=== PATIENT | female | born 1950 | race Caucasian/White ===

== ENCOUNTER → 2020-12-17 10:07 | Outpatient (CLI) | payer MEDICARE, OTHER, SELFPAY ==
--- NOTE | ~2020-12-17 | US_ITS ---
EXAMINATION: US soft tissue UE RT EXAM DATE: 12/17/2020 10:45 INDICATION: R22.9 - Localized swelling, mass and lump, unspecified, reportedly mass for one week. No known injury. TECHNIQUE: Multiple grayscale and Doppler images of the right upper arm region were obtained (by a te chnologist who performed the scan) and subsequently reviewed. There is no prior study for comparison . FINDINGS: Scanning in the area of clinical concern demonstrates a focal region isoechoic to surrounding fat, me asuring about 10 cm diameter by 2.4 cm in thickness. This is most consistent with an encapsulated lip bandar, but obviously would have had to be present for much longer than one week. Please clinically belinda elate. Musculature deep to this is unremarkable. 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 Reviewed, dictated and finalized at location B.
== END ==
PROVIDERS: PCP Family Medicine; Visit Provider Nurse Practitioner Family
DX: R22.9 Localized swelling, mass and lump, unspecified (principal); M79.89 Other specified soft tissue disorders
CPT/HCPCS: 76882

== ENCOUNTER 2021-03-29 09:16 | Outpatient (CLI) | payer MEDICARE, OTHER, SELFPAY ==
[2021-03-29 09:49] LABS: Anion Gap 9 mmol/L (8-16); Blood Urea Nitrogen 16 mg/dL (7-17); Calcium 9.2 mg/dL (8.4-10.2); Carbon Dioxide 29 mmol/L (22-30); Chloride 101 mmol/L (98-107); Estimated Glomerular Filt Rate > 60; Glucose 161 mg/dL (65-110); Potassium 4.1 mmol/L (3.4-5.0); Sodium 139 mmol/L (137-145)
== END 2021-03-29 09:17 | disposition home or self-care (01) ==
LOC: ANHSURGERY 09:22
PROVIDERS: Anesthesiology; PCP Family Medicine; Visit Provider Plastic Surgery
DX: E11.65 Type 2 diabetes mellitus with hyperglycemia (principal); Z01.818 Encounter for other preprocedural examination
CPT/HCPCS: 36415; 80048

== ENCOUNTER 2021-04-03 01:07 | Day surgery (SDC) | payer MEDICARE, OTHER, SELFPAY ==
[2021-03-28 16:04] VITALS: BMI 36.1
--- NOTE | 2021-03-28 16:15 | PC.NURSE ---
Report to the Outpatient Waiting Room, entrance under the green pavilion located off [facility], at time __7:00AM on date ___04/03/21____. OR Time: ____9:00AM____. - You and your visitor will be asked a series of questions to screen for COVID 19 for your protection. - A mask is required within the hospital. - Only one visitor is allowed at this time. Patient visitors will be guided where to wait when not with patient. Preoperative COVID Testing Requirements: No COVID Test needed if: (proof is required; if not received patient will have Rapid Test prior to entry) - Patient has received COVID Vaccine at least 14 days prior to procedure date or - Patient has positive COVID test result within last 90 days of surgery date. COVID Test needed if above criteria is not met If not COVID vaccinated a COVID test must be conducted within 72 hours of surgery and patient is asked to isolate self from time of testing until procedure. You will go to the [employer] [facility] Testing Site for your COVID testing. The [employer] [facility] site is located at the corner of [address] [facility]. You will only be called if COVID results are positive and your surgeon may reschedule your elective surgery date. Patients may have clear liquids (water, carbonated beverages, clear teas, apple juice) until 3 hours prior to surgery with a maximum of 20 ounces. - No food from midnight until time of surgery - Infants may have breast milk until 4 hours before surgery, infant formula 6 hours prior to surgery. - Children will be allowed to drink immediately following surgery. If applicable, please bring a bottle or sippy cup to assist with drinking. Juice, water, soda, and popsicles are readily available. For infants on formula, please bring formula the day of surgery. Pacifiers are allowed. Take the following medications with a SIP of water the morning of surgery: FLUOXETINE Medications to discontinue per physician ALL VITAMINS/SUPPLEMENTS 3 DAYS PRE-OP Date to take last dose 03/30/21 Please no make-up, nail marshallese, hairspray, perfume, deodorant, or body powder the day of surgery. No jewelry (including any body piercings) or valuables the day of surgery, leave them at home. Please take a shower or bath the night before, or the morning of, surgery with an antibacterial soap. Wear comfortable, loose fitting clothing. Children are encouraged to wear pajamas. - Jewelry must be removed prior to entering the operating room. Rings and piercings that are not removed may be cut off. - The hospital will not accept responsibility for valuables. - Please leave all valuables, including medications, at home the day of surgery. If you are going home after surgery, a licensed feeder driver must drive you home. - NO public transportation without another adult. - We recommend that an adult stay with you for 24 hours following discharge. - We also recommend that you do not drive, make important decision, drink alcoholic beverages, or take any drugs that were not prescribed by your health care provider for at least 24 hours after your discharge time. For Pediatric surgeries, we recommend two adults accompany the child home (only one inside the building at this time). Follow any additional instructions given to you from your surgeon. Telephone instructions given to PATIENT and asked if any additional questions and then verbalized understanding. Patient advised to call surgeon office or pre surgery nurse liaison [phone] if any additional questions.
--- NOTE | 2021-04-03 07:14 | WPDHPUPDATE1 ---
History and Physical Update Update Date/Time: 04/03/21 07:14 History and Physical has been reviewed, including an updated exam of the patient. There are NO changes in the patient's condition. Risks, benefits, and alternatives have been discussed and questions answered. Patient agrees to proceed with procedure.
[2021-04-03 07:24] VITALS: BP 127/65; PULSE 63; RESP 18; TEMP 36.9; O2SAT 97; BMI 36.1
[2021-04-03] MEDS: LACTATED RINGERS 1,000 ML 30 ML IV CONT (07:43)
[2021-04-03 07:50] LABS: Glucose Point of Care 131 mg/dl (65-105)
--- NOTE | 2021-04-03 08:11 | WPDANESEPPF ---
Anes - Initial Pre Proc Eval Procedure: Operation Date: 04/03/21 09:00 Proposed Procedures p Excision Lipoma Right Anterior Arm - Zach Ohara MD Date/Time: 04/03/21 08:11 Surgeon: Zach Ohara MD Pre Op Diagnosis: 10cm lipoma right anterior arm Patient Data Age: 70 Gender: F Height: 1.52 m Weight: 84 kg Last Vital Signs Temp 36.9 C 04/03/21 07:24 Pulse 63 04/03/21 07:24 Resp 18 04/03/21 07:24 BP 127/65 04/03/21 07:24 Pulse Ox 97 04/03/21 07:24 Allergies Allergy/AdvReac Type Severity Reaction Status Date / Time ampicillin Allergy Mild face rash Verified 04/03/21 07:28 cephalexin [From Keflex] Allergy Mild Itching Verified 04/03/21 07:28 ciprofloxacin [From Cipro] Allergy Mild SWELLING/REDNESS Verified 04/03/21 07:28 AT LIPS erythromycin base AdvReac Mild Unknown Verified 04/03/21 07:28 Home Medications Medication Instructions Recorded Confirmed Type bisoprolol 5 1 tablet PO BID #180 tablet 11/29/20 04/03/21 Rx mg-hydrochlorothiazide 6.25 mg tablet metformin 1,000 mg tablet 1,000 mg PO BID #180 tablet 11/29/20 04/03/21 Rx amlodipine-benazepril 1 cap PO QAM 03/28/21 04/03/21 History atorvastatin 10 mg PO HS 03/28/21 04/03/21 History biotin 2,500 mcg PO DAILY 03/28/21 04/03/21 History fluoxetine [Prozac] 20 mg PO QAM 03/28/21 04/03/21 History multivitamin [Daily Multiple] 1 tablet PO DAILY 03/28/21 04/03/21 History sitagliptin [Januvia] 100 mg PO QAM 03/28/21 04/03/21 History Laboratory Tests 04/03/21 07:41 POC Capillary Glucose 131 mg/dl H mg/dl (65-105) Patient hx anesthesia problems: none Family hx anesthesia problems: none Results Review: All pre-operative results and documents have been reviewed as part of the pre-operative evaluation. [facility] Past Medical History Medical History Anxiety BMI 37.0-37.9, adult BMI 39.0-39.9,adult Hypertension Lipoma of extremity Mixed hyperlipidemia Type 2 diabetes mellitus with hyperglycemia Surgical History Surgical History (Updated 04/03/21 @ 08:11 by Chin De La Vega MD) History of ankle surgery Family History Family History Other Diabetes mellitus Heart disease Hypertension Social History Social History Smoking status: Never smoker Alcohol intake: never Substance use: never Living arrangements: with family Additional living arrangements comments: HUSB Spiritual care concerns: No Anes - Eval Final PreProcedure Day of Procedure 04/03/21 08:11 Patient weight: obese Heart: regular rate and rhythm Lungs: clear to auscultation Airway: Mallampati scale class II Neurological: alert and oriented Last oral intake: >/= 8 hours ASA classification: III Emergent: no Anesthetic plan: proceed Anesthesia type and monitoring: general GIVS and standard monitoring Results Review: All pre-operative results and documents have been reviewed as part of the pre-operative evaluation. Informed Consent: The patient's anesthetic plan and its attendant risks and benefits were discussed with the patient/family/POA. Questions were solicited and answers provided to the satisfaction of the patient/family/POA.
[2021-04-03] MEDS: LIDO 1%/EPINEPHRINE 1:100,000 50 ML VIAL 10 ML INFILTRATE (09:23)
[2021-04-03 09:49] VITALS: BP 133/67; PULSE 69; RESP 12; O2SAT 93
--- NOTE | 2021-04-03 10:11 | P.OP_ITS ---
Procedure Note - Detailed Date of Procedure 04/03/21 Pre-op Diagnosis 10cm lipoma right anterior arm Post-op Diagnosis other (15x12 cm lipoma) Procedure Performed Excision of 15 x 12 cm lipoma of the right anterior arm. Surgeon Zach Ohara MD Anesthesia MAC and local Indications Large obtrusive subcutaneous mass overlying the right upper biceps. Findings Lipoma. Description of Procedure The large mass on the patient's right upper arm was identified and marked with her agreement in the holding area.. She was then taken to the operating room where she was placed supine on the operating table. The area was supported on a hand table. She was given IV sedation. The extremity was prepped and draped in usual fashion. The site was remarked and the area locally infiltrated with 10 milliliter of lidocaine with epinephrine 1%. No tourniquet was utilized. A 6 cm incision was made. The lipoma was readily identified and lay just under a very thin layer of subcutaneous fat. This mass was dissected around the periphery with blunt dissection using Metzenbaum and digital dissection. The mass was extruded from the arm with bimanual digital compression. The cavity was inspected and there was no significant bleeding. There was no retained lipoma. Due to the large size of this cavity we elected to place the 15 Swedish fluted round drain attached to a bulb reservoir. The skin was closed in the burnett perficial fascia and dermis with interrupted 4-0 Monocryl. Glue was applied to that. The drain was brought out through a separate stab wound distally. is sutured to skin with 4-0 nylon. The drain site dressing was applied under tape. She was discharged from the operating room stable condition. She is being discharged home with instructions in wound care and follow-up. A prescription for tramadol number 10 was sent to her pharmacy. Estimated Blood Loss 2 Drains Yes Packing No Pathology yes Complications No immediate complications Condition stable Disposition same day
[2021-04-03 10:15] VITALS: BP 123/70; PULSE 59; RESP 14; O2SAT 95
[2021-04-03 10:45] VITALS: BP 124/71; PULSE 61; RESP 14; O2SAT 98
== END 2021-04-03 10:53 | disposition home or self-care (01) ==
PROVIDERS: PCP Family Medicine; Visit Provider Plastic Surgery
PROC: (CPT 24071; principal; 2021-04-03 09:00)
DX: D17.21 Benign lipomatous neoplasm of skin and subcutaneous tissue of right arm (principal); E11.9 Type 2 diabetes mellitus without complications; E78.2 Mixed hyperlipidemia; I10 Essential (primary) hypertension; F41.9 Anxiety disorder, unspecified; E66.9 Obesity, unspecified; Z68.36 Body mass index [BMI] 36.0-36.9, adult; Z79.84 Long term (current) use of oral hypoglycemic drugs
CPT/HCPCS: 24071; 82948; 88304; A9270; J1100; J2405; J2704; J7120

== ENCOUNTER 2022-08-08 10:00 | Outpatient (RCR) | payer MEDICARE, OTHER, SELFPAY ==
--- NOTE | 2022-07-10 10:21 | BUPTOPEVAL1 ---
Assessment and note entered by Tisha Scanlon, PT Evaluation Information Assessment Status Evaluation Diagnosis lumbago with right sciatic Onset 05/18/23 Subjective Information Pt reports pain in right leg started when was moving her mother's chair while moving. Feels like pulled a muscle up under buttock but goes all the way to the foot. Reported Pain Level Pain Score 3: Self Report Additional Pain Score Comments Limited in taking care of her mother because of pain Assessment PT Clinical Summary Pt presents w/ c/o pain in right hamstring (LE) that will at times go down to her foot. Evaluation shows leg length discrepancy R>L with possible pelvic alignment issue as well, poor lumbopelvic core strength, poor flexibility marinelli hip musculature, (+) straight leg raise testing (+) FADDIR and (+) pain in right lumbar with SKC. Pt will benefit from physical therapy in order to address pelvic alignment, decompress right side of lumbar with heel lift to left LE, strengthening and flexibility exercises in order to improve alignment and decrease pain. Plan of Care Interventions Electrical Stimulation,Hot Pack/Cold Pack,Manual Therapy,Neuro Re-education,Patient/Caregiver Ed,Therapeutic Activities,Therapeutic Exercise,Self-Care/Home Management,Ultrasound PT Services Indicated Yes Treatment Frequency and 2x weekly x 4 weeks Duration These treatments will address the objective and functional deficits as defined above. The patient will be advanced safely and appropriately in order for the patient to progress towards his/her prior level of function. Additional exercises will be introduced and as well as a comprehensive home exercise program upon discharge, if needed, ?to ensure carryover of functional gains achieved in the clinic. This treatment plan has been reviewed and agreement upon by the patient.
--- NOTE | 2022-07-30 12:20 | PCPTNOTE ---
Patient has covid and not able come to appointment.
--- NOTE | 2022-08-08 10:28 | PTOPDC ---
Assessment and note entered by Violet Smith, PT, DPT Evaluation Information Assessment Status Progress Diagnosis lumbago with right sciatic Onset 05/18/23 Subjective Information Pt states her hip pain is a lot better, she states the exercises are really helping. She states she can walk without pain but does get a mild twinge with prolonged standing. Pt reports 99% improvement in overall symptoms. Reported Pain Level Pain Score 0: Self Report Assessment PT Clinical Summary Giulia presents to therapy today for her progress report following 6 visits of skilled therapy to treat her low back pain with R side sciatic symptoms. Today she demonstrate no increase in pain with active and passive hip and trunk motion, good functional mobility and progressing strength . She has met or progressed well towards her therapy goals and no longer requires skilled therapy services. She will be discharged at this time with instructions to continue her HEP upon discharge. Plan of Care PT Services Indicated No Treatment Frequency and discharge Duration
== END 2022-08-08 11:11 | disposition home or self-care (01) ==
LOC: ANHGOSHPT 10:00
PROVIDERS: PCP Family Medicine; Visit Provider Family Medicine
DX: M54.41 Lumbago with sciatica, right side (principal)
CPT/HCPCS: 97014; 97110; 97112; 97140; 97162; 97530; G0283

== ENCOUNTER 2024-11-15 09:38 | Outpatient (CLI) | payer MEDICARE, SELFPAY ==
--- NOTE | ~2024-11-15 | CT_ITS ---
CT pelvis wo con Ordering provider: Emilia Maharaj MD History: . Unilateral inguinal hernia, without obstruction or gangrene, . Comparison: February Technique: CT pelvis without oral and IV contrast. . Automated exposure control and iterative recons truction technique were employed. The dose-length product was 453.49 mGy-cm. Findings: BONES: No pelvic fracture or hip dislocation. Age appropriate degenerative changes of the visualized lower lumbar spine. The hip and sacroiliac joint spaces are normal. SUPERFICIAL SOFT TISSUES: Right inguinal hernia with bowel and fat content. No obstruction is seen. S mall left fat-containing inguinal hernia. PELVIC ORGANS: The bladder is underfilled. VISUALIZED BOWEL AND MESENTERY: Normal. No free air or free fluid. No lymphadenopathy. RETROPERITONEUM: Mild atheromatous disease. IMPRESSION: Right inguinal hernia with bowel and fat content. Small left inguinal fat containing hernia. Reviewed, dictated and finalized at location A. IMPRESSION: Right inguinal hernia with bowel and fat content. Small left inguinal fat conta ining hernia.
== END 2024-11-15 09:39 | disposition home or self-care (01) ==
PROVIDERS: PCP Surgery; Visit Provider Surgery
DX: K40.90 Unilateral inguinal hernia, without obstruction or gangrene, not specified as recurrent (principal)
CPT/HCPCS: 72192

== ENCOUNTER 2024-12-22 10:39 | Outpatient (CLI) | payer MEDICARE, SELFPAY ==
--- OUTSIDE RECORDS SUMMARY | 2024-12-22 10:47 | XMS_ITS | Clinical Summary ---
Author Organization [facility] Address [address] [place] [id number] Care Team Providers Care Anesthetist Name Role Phone Unavailable Primary Care Provider Unavailabl e Social History Tobacco Use Types Packs/Day Years Used Date Smoking Tobacco: Never Assessed Comments Unknown Sex and Gender Information Value Date Recorded Sex Assigned at Not on file Legal Sex Female 7:43 PM CDT Gender Identity Not on file Sexual Orientation Not on file Plan of Treatment Health Maintenance Due Date Last Done Comments Colorectal Cancer Screening Colonoscopy (10 Years) 1950 Hepatitis C 12/10/1969 DTaP, Tdap and Td Vaccines ( 1 - Tdap) 12/10/1970 Mammogram Screening 1991 Pneumococcal Vaccine: 50+ Ye ars (1 of 1 - PCV) 12/10/2001 Zoster Vaccines (1 of 2) 12/10/2001 Dexa Scan (General) 12/10/2016 COVID-19 Vaccine ( - 2023-2 5 season) 2024 RSV Immunization or 60+ Years (1 - 1-dose 75+ series) 12/10/2026 Meningococcal B Vaccine Aged Out No l onger eligible based on patient's age to complete this topic Meningococcal Vaccine Aged Out No hipolito gypsy eligible based on patient's age to complete this topic RSV Immunizations Under 20 Months Aged Out No longer eligible based on patient's age to complete this topic
--- OUTSIDE RECORDS SUMMARY | 2024-12-22 10:47 | XMS_ITS | Clinical Summary ---
Author Organization [facility] Address [address] [place] [address] Care Team Providers Care Python Django Developer Name Role Phone Chucho Collazo MD Primary Care Provider Allergies No known active allergies Encounters Date Type Department Care Team Description 11/07/2024 10:59 AM CDT - 11/07/2024 11:59 PM CDT Hospital Encounter [facility] Breast [facility] ([facility] [address] [place] [address] Screening mammogram, encounter for Discharge Disposition: Discharge to home or self care from Last 3 Months Family History Medical History Relation Name Comments Prostate cancer Father Breast cancer Neg Hx Ovarian cancer Neg Hx Relation Name Status Comments Father Social History Tobacco Use Types Packs/Day Years Used Date Smoking Tobacco: Never Assessed Comments Unknown Sex and Gender Information Value Date Recorded Sex Assigned at Not on file 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 Gender Identity Not on file Sexual Orientation Not on file Obstetrics History Para Term AB IAB SAB Ectopic Multiple Livin g Live Births 1 1 1 Date Outcome GA Total Labor Labor/2nd/3rd Weight Sex Type Anes PTL Natasha A1 A5 Name Clin Term Last Filed Vital Signs Vital Sign Reading Time Taken Comments Blood Pressure - - Pulse - - Temperature - - Respiratory Rate - - Oxygen Saturation - - Inhaled Oxygen Concentration - - Weight 74.8 kg (165 lb) 11/07/2024 11:07 AM CDT Height 152.4 cm (5') 11/07/2024 11:07 AM CDT Body Mass Index 32.22 11/07/2024 11:07 AM CDT Plan of Treatment Health Maintenance Due Date Last Done Comments Colon Cancer Screening-Colonoscopy 1950 Depression Screening 1950 Fall Risk Assessment 1950 Hepatitis C Screening 1950 Osteoporosis Screening-Bone Density Scan 1950 DTaP/Tdap/Td Vaccine (1 - Tdap) 12/10/1962 Hepatitis B Screening 12/10/1969 Zoster Vaccine (1 of 2) 12/10/2001 Well Visit 65+ 12/10/2016 Influenza Vaccine (#1) 2025 , 03/28/2019, 03/09/2018, Additional history exists Breast Cancer Screening-Mammogram 11/07/2025 11/07/2024, 11/06/2023, 07/24/2022, Additional history exists Pneumococcal vaccine 65+ Completed 03/15/2019, 02/22 Procedures Procedure Name Priority Date/Time Associated Diagnosis Comments SCREENING MAMMOGRAM BILATERAL W TACHO Schedule Routine, Read Routine (OP Routine) 11/07/2024 11:15 AM CDT Screening mammogram, encounter for from Last 3 Months Results * Screening Mammogram Bilateral W Tacho (11/07/2024 11:15 AM CDT) Anatomical Region Laterality Modality Breast Bilateral Mammography Impressions 11/08/2024 1:27 PM CDT Bilateral No evidence of malignancy in either breast. OVERALL BI-RADS FINAL ASSESSMENT: 1 - Negative RECOMMENDATION: Recommend bilateral annual screening mammography. Narrative 11/08/2024 1:27 PM CDT EXAMINATION: Screening Mammogram Bilateral W Tacho: 11/07/2024 COMPARISON: Relevant prior studies available at the time of interpretation were reviewed. TECHNIQUE: Mammography was performed with 2D and digital breast tomosynthesis (DBT) images. CAD was utilized. BREAST PARENCHYMAL COMPOSITION: There are scattered areas of fibroglandular density. FINDINGS: Bilateral There is no suspicious mass, calcification, or architectural distortion in either breast. us Self Screening Mammogram IMG MAMMO PROCEDURES Fi nal Result from Last 3 Months Insurance MEDICARE Member Subscriber Plan / Payer (Ef fective 2016-Present) Name:Giulia Estrada Member ID:[id number] Relation to Subscriber:Self Name:Giulia Estrada Subscriber ID:[id number] Payer ID:[id number] Group ID:Not on file Type:MEDICARE TRADITIONAL Address: [place] [id number] MEDICARE Member Subscriber Plan / Payer (Ef fective 2016-Present) Name:Giulia Estrada Member ID:[id number] Relation to Subscriber:Self Name:Giulia Estrada Subscriber ID:[id number] Payer ID:[id number] Group ID:Not on file Type:MEDICARE TRADITIONAL Address: [place] [id number] [facility] MEDICARE [facility] MEDICARE [facility] [place] [address] MEDICARE [employer] SENIOR SUPPLEMENT Care Teams Python Django Developer Relationship Specialty Start Date End Date Chucho Collazo MD PCP - General Family Medicine 05/27/22
--- OUTSIDE RECORDS SUMMARY | 2024-12-22 10:47 | XMS_ITS | Referral Summary ---
Author Organization [facility] Address [address] [place] [address] Care Team Providers Care Senior Finance Manager Name Role Phone Chucho Collazo MD Primary Care Provider [phone] Encounters Date Type Department Care Team Description 11/07/2024 10:59 AM CDT - 11/07/2024 11:59 PM CDT Hospital Encounter [facility] Advanced Medicine Breast Imaging 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 Gender Identity Not on file Sexual Orientation Not on file Last Filed Vital Signs Vital Sign Reading Time Taken Comments Blood Pressure - - Pulse - - Temperature - - Respiratory Rate - - Oxygen Saturation - - Inhaled Oxygen Concentration - - Weight 74.8 kg (165 lb) 11/07/2024 11:07 AM CDT Height 152.4 cm (5') 11/07/2024 11:07 AM CDT Body Mass Index 32.22 11/07/2024 11:07 AM CDT Plan of Treatment Not on file Procedures Procedure Name Priority Date/Time Associated Diagnosis [...] Result from Last 3 Months Insurance MEDICARE MEDICARE [facility] [place] [place] [address] MEDICARE [facility] MEDICARE [facility] [address] [address] MEDICARE [employer] SENIOR SUPPLEMENT Care Teams Senior Finance Manager Relationship Specialty Start Date End Date Chucho Collazo MD PCP - General Family Medicine 05/27/22
--- NOTE | 2024-12-22 10:49 | ECG_ITS ---
Test Date: 2024-12-22 11:33:48 Measurements Intervals Williamson Rate: 70 P: 32 VA: 133 QRS: 43 QRSD: 82 T: 89 QT: 393 QTc: 425 Interpretive Statements SINUS RHYTHM LOW QRS VOLTAGE IN PRECORDIAL LEADS POSSIBLE ANTERIOR MYOCARDIAL INFARCTION BORDERLINE T WAVE ABNORMALITY- HIGH LATERAL LEADS BASELINE ARTIFACT- I, II, III, AVR, AVL, AVF, V4-V6 ABNORMAL ECG No previous ECG available for comparison Electronically Signed On 12-23-2024 06:27:09 CDT by Coy Mcdonald D.O.
[2024-12-22 12:12] LABS: INR 1.0; Partial Thromboplastin Time 28.1 Seconds (22.3-36.8); Prothrombin Time 13.4 Seconds (11.1-14.7)
[2024-12-22 12:21] LABS: Anion Gap 11 mmol/L (4-12); Blood Urea Nitrogen 20 mg/dL (7-17); Calcium 9.6 mg/dL (8.4-10.2); Carbon Dioxide 22 mmol/L (22-30); Chloride 103 mmol/L (98-107); Estimated Glomerular Filt Rate 44; Glucose 233 mg/dL (65-110); Potassium 4.7 mmol/L (3.4-5.0); Sodium 136 mmol/L (137-145)
== END 2024-12-22 10:40 | disposition home or self-care (01) ==
LOC: ANHSURGERY 10:44
PROVIDERS: Anesthesiology; PCP Family Medicine; Visit Provider Surgery
DX: K40.90 Unilateral inguinal hernia, without obstruction or gangrene, not specified as recurrent (principal); E11.65 Type 2 diabetes mellitus with hyperglycemia; Z01.818 Encounter for other preprocedural examination; I12.9 Hypertensive chronic kidney disease with stage 1 through stage 4 chronic kidney disease, or unspecified chronic kidney disease; N18.31 Chronic kidney disease, stage 3a
CPT/HCPCS: 36415; 80048; 85610; 85730; 86850; 86900; 86901; 93005

== ENCOUNTER 2024-12-29 03:19 | Day surgery (SDC) | payer MEDICARE, SELFPAY ==
[2024-12-21 09:56] VITALS: BMI 32.7
--- NOTE | 2024-12-21 10:19 | PC.NURSE ---
Report to the Outpatient Waiting Room, entrance under the green pavilion located off [facility], at time ___10:00AM____ on date ___12/29/24___. Planned Procedure Time: ___12:00PM____.? Time changes happen often and if your time is changed the preop area will call you the afternoon before. - You and your visitor will be asked to self-screen and do not enter if you have any COVID symptoms. Please call surgeon if you need to reschedule. - A mask is optional within the hospital at this time. Patients may have clear liquids (water, carbonated beverages, clear teas, apple juice) until 3 hours prior to surgery (9:00AM) with a maximum of 20 ounces. - No food from midnight until time of surgery and no smoking, or chewing tobacco (or any form of nicotine). No chewing gum, candy or mints. Take only the following medications with a SIP of water on the morning of surgery: FLUOXETINE DO NOT STOP ANY OF YOUR OTHER PRESCRIPTION MEDICATIONS PRIOR TO SURGERY EXCEPT THE FOLLOWING Hold all vitamins and supplements for 3 days per anesthesiologist.-LAST DOSE 12/25/24. Please no make-up, nail khmer, hairspray, perfume, deodorant, or body powder the day of surgery.? No jewelry (including any body piercings) or valuables the day of surgery, leave them at home.? Please take a shower or bath the night before, or the morning of, surgery with an antibacterial soap.? Wear comfortable, loose fitting clothing.? - Jewelry must be removed prior to entering the operating room.? Rings and piercings that are not removed may be cut off. - The hospital will not accept responsibility for valuables.? - Please leave all valuables, including medications, at home the day of surgery. If you are going home after surgery, a licensed road driver must drive you home.? - NO public transportation without another adult if you receive anesthesia. - We recommend that an adult stay with you for 24 hours following discharge. - We also recommend that you do not drive, make important decision, drink alcoholic beverages, or take any drugs that were not prescribed by your health care provider for at least 24 hours after your discharge time. Follow any additional instructions given to you from your surgeon. Telephone instructions given to ____PATIENT and asked if any additional questions and then verbalized understanding. Patient advised to call surgeon office or pre surgery nurse liaison [phone] if any additional questions.
[2024-12-29] VITALS (8 sets, daily range): BP systolic 98–133; BP diastolic 57–78; PULSE 64–79; RESP 11–20; TEMP 36.3–36.8; O2SAT 98–100
--- OUTSIDE RECORDS SUMMARY | 2024-12-29 03:20 | XMS_ITS | Clinical Summary ---
Author Organization [facility] Address [address] [place] [id number] Care Team Providers Care Fill Manager Name Role Phone Unavailable Primary Care Provider [...]
--- OUTSIDE RECORDS SUMMARY | 2024-12-29 03:20 | XMS_ITS | Clinical Summary ---
Author Organization [facility] Address [address] [place] [address] Care Team Providers Care Painter Spring Name Role Phone Chucho Collazo MD Primary Care Provider Allergies No known active allergies Encounters Date Type Department Care Team Description 11/07/2024 10:59 AM CDT - 11/07/2024 11:59 PM CDT Hospital Encounter 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 Gender Identity Not on file Sexual Orientation [...] Payer (Ef fective 2016-Present) Name:Giulia Estrada Member ID:[id number] Relation to Subscriber:Self Name:Giulia Estrada Subscriber ID:[id number] Payer ID:[id number] Group ID:Not on file Type:MEDICARE TRADITIONAL Address: [place] [phone] MEDICARE Member Subscriber Plan / Payer (Ef fective 2016-Present) Name:Giulia Estrada Member ID:[id number] Relation to Subscriber:Self Name:Giulia Estrada Subscriber ID:[id number] Payer ID:[id number] Group ID:Not on file Type:MEDICARE TRADITIONAL Address: [place] [phone] [facility] MEDICARE [facility] MEDICARE [facility] [place] [address] MEDICARE [employer] SENIOR SUPPLEMENT Care Teams Painter Spring Relationship Specialty Start Date End Date Chucho Collazo MD PCP - General Family Medicine 05/27/22
[2024-12-29] MEDS: LACTATED RINGERS 1,000 ML 30 ML IV CONT ×2 (11:45→13:37)
[2024-12-29] MEDS: KETOROLAC 15 MG/ML VIAL (*BKC) IV PUSH (11:45)
[2024-12-29] MEDS: ACETAMINOPHEN 500 MG TABLET 1000 MG PO (11:45)
--- NOTE | 2024-12-29 11:55 | P.PNAN_ITS ---
Anes - Initial Pre Proc Eval Procedure: Operation Date: 12/29/24 12:00 Proposed Procedures p Robotic Assisted Repair Right Incarcerated Inguinal Hernia with Mesh - Emilia Maharaj MD Date/Time: 12/29/24 11:55 Surgeon: Emilia Maharaj MD Pre Op Diagnosis: incarcerated right inguinal hernia Patient Data Age: 74 Gender: F Height: 1.52 m Weight: 77.4 kg Last Vital Signs Temp 36.8 C 12/29/24 11:45 Pulse 78 12/29/24 11:45 Resp 16 12/29/24 11:45 BP 133/78 12/29/24 11:45 Pulse Ox 98 12/29/24 11:45 O2 Del Method Room Air 12/29/24 11:45 Allergies Allergy/AdvReac Type Severity Reaction Status Date / Time ampicillin Allergy Mild face rash Verified 12/21/24 09:53 cephalexin (From Keflex) Allergy Mild Itching Verified 12/21/24 09:53 ciprofloxacin (From Cipro) Allergy Mild SWELLING/REDNESS Verified 12/21/24 09:53 AT LIPS erythromycin base AdvReac Mild Unknown Verified 12/21/24 09:53 Home Medications ?Medication ?Instructions ?Recorded ?Confirmed ?Type multivitamin 1 tablet PO DAILY 03/28/21 12/21/24 History atorvastatin 10 mg tablet 10 mg PO HS #100 tabs 03/07/24 12/21/24 Rx metformin 1,000 mg tablet 1,000 mg PO BID #180 tabs 08/04/24 12/21/24 Rx amlodipine 10 mg-benazepril 40 mg See Rx Instructions .Route 09/17/24 12/21/24 Rx capsule .COMPLEX #90 caps dapagliflozin propanediol 10 mg See Rx Instructions .Route 09/17/24 12/21/24 Rx tablet (Farxiga) .COMPLEX #90 tabs sitagliptin phosphate 100 mg 100 mg PO QAM #90 tabs 09/17/24 12/21/24 Rx tablet (Januvia) fluoxetine 20 mg capsule (Prozac) 20 mg PO QAM #90 caps 12/10/24 12/21/24 Rx cholecalciferol (vitamin D3) 50 2,000 unit PO DAILY 12/21/24 12/21/24 History mcg (2,000 unit) capsule Laboratory Tests 12/29/24 11:39 POC Capillary Glucose 126 H mg/dl (65-105) Patient hx anesthesia problems: none Family hx anesthesia problems: none Results Review: All pre-operative results and documents have been reviewed as part of the pre- operative evaluation. [facility] Past Medical History Medical History CKD stage 3a, GFR 45-59 ml/min BMI 38.0-38.9,adult BMI 34.0-34.9,adult Obesity (BMI 35.0-39.9 without comorbidity) Hx of lipoma BMI over 35 BMI 37.0-37.9, adult Lipoma of extremity Mixed hyperlipidemia BMI 39.0-39.9,adult Hypertension Anxiety Type 2 diabetes mellitus with hyperglycemia Surgical History Surgical History History of ankle surgery Family History Family History Father Diabetes mellitus Heart disease Mother Hypertension Sibling No problems noted. Social History Social History Smoking status: Former smoker Second hand tobacco smoke exposure: No Alcohol intake: current Substance use: never Substance use type: does not use Do You Feel Safe in your Home?: Yes Lack of Transportation: No Lack of Food: Never True Current Housing: I Have Housing Concerned About Future Housing: No Difficulty Paying Gas/Electric Bills: No Difficulty Paying for Meds: No Currently Unemployed: No Education: Bachelor's Degree Difficulty w/ Childcare or Family Care: No Living arrangements: with family Additional living arrangements comments: spouse Occupation/Education: retired 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 Informed Consent: The patient's anesthetic plan and its attendant risks and benefits were discussed with the patient/family/POA. Questions were solicited and answers provided to the satisfaction of the patient/family/POA.
--- NOTE | 2024-12-29 12:04 | P.HP_ITS ---
H&P: HPI History of Present Illness Date/Time: 12/29/24 12:04 Chief Complaint: right inguinal hernia Narrative: Giulia is a 73 y/o female who presents to the office at the request of Dr. Collazo for evaluation of a right inguinal hernia. States she has a reducible bulge in the right groin that has been present for about 4 months. More noticeable with standing. Denies any pain or change in size. No issues with urinating or BM's. Denies any prior abdominal surgery history. Review of Systems Review of Systems: All systems reviewed & are unremarkable except as noted in HPI and below PMFSH Past Medical History Medical History CKD stage 3a, GFR 45-59 ml/min BMI 38.0-38.9,adult BMI 34.0-34.9,adult Obesity (BMI 35.0-39.9 without comorbidity) Hx of lipoma BMI over 35 BMI 37.0-37.9, adult Lipoma of extremity Mixed hyperlipidemia BMI 39.0-39.9,adult Hypertension Anxiety Type 2 diabetes mellitus with hyperglycemia Surgical History Surgical History History of ankle surgery Family History Family History Father Diabetes mellitus Heart disease Mother Hypertension Sibling No problems noted. Social History Social History Smoking status: Former smoker Second hand tobacco smoke exposure: No Alcohol intake: current Substance use: never Substance use type: does not use Do You Feel Safe in your Home?: Yes Lack of Transportation: No Lack of Food: Never True Current Housing: I Have Housing Concerned About Future Housing: No Difficulty Paying Gas/Electric Bills: No Difficulty Paying for Meds: No Currently Unemployed: No Education: Bachelor's Degree Difficulty w/ Childcare or Family Care: No Living arrangements: with family Additional living arrangements comments: spouse Occupation/Education: retired Additional occupation/education comments: [employer] ([employer]) Gender identity (if verbalized by the patient): Female Spiritual care concerns: No Meds Home Medications and Allergies Home Medications ?Medication ?Instructions ?Recorded ?Confirmed ?Type multivitamin 1 tablet PO DAILY 03/28/21 12/21/24 History atorvastatin 10 mg tablet 10 mg PO HS #100 tabs 03/07/24 12/21/24 Rx metformin 1,000 mg tablet 1,000 mg PO BID #180 tabs 08/04/24 12/21/24 Rx amlodipine 10 mg-benazepril 40 mg See Rx Instructions .Route 09/17/24 12/21/24 Rx capsule .COMPLEX #90 caps dapagliflozin propanediol 10 mg See Rx Instructions .Route 09/17/24 12/21/24 Rx tablet (Farxiga) .COMPLEX #90 tabs sitagliptin phosphate 100 mg 100 mg PO QAM #90 tabs 09/17/24 12/21/24 Rx tablet (Januvia) fluoxetine 20 mg capsule (Prozac) 20 mg PO QAM #90 caps 12/10/24 12/29/24 Rx cholecalciferol (vitamin D3) 50 2,000 unit PO DAILY 12/21/24 12/21/24 History mcg (2,000 unit) capsule Allergies Allergy/AdvReac Type Severity Reaction Status Date / Time ampicillin Allergy Mild face rash Verified 12/29/24 11:56 cephalexin (From Keflex) Allergy Mild Itching Verified 12/29/24 11:56 ciprofloxacin (From Cipro) Allergy Mild SWELLING/REDNESS Verified 12/29/24 11:56 AT LIPS erythromycin base AdvReac Mild Unknown Verified 12/29/24 11:56 Vital Signs Vital Signs - 24 hr 12/29/24 11:45 Temperature 36.8 C Pulse Rate 78 Respiratory Rate 16 Blood Pressure 133/78 Pulse Oximetry 98 Oxygen Delivery Room Air Exam Const: General: cooperative, comfortable and no acute distress Resp: Auscultation: clear to auscultation bilaterally Cardio: Rate: regular rate Rhythm: regular rhythm GI: Inspection: normal to inspection and visible herniation GI Palp: Yes abdominal tenderness and Yes Hernia present Other: right inguinal hernia - reducible Assessment and Plan Assessment and plan (1) Right inguinal hernia: Code(s): K40.90 - Unilateral inguinal hernia, without obstruction or gangrene, not specified as recurrent Status: Acute Assessment and Plan: will setup for robotic assisted repair c mesh
--- NOTE | 2024-12-29 12:06 | WPDHPUPDATE1 ---
History and Physical Update Update Date/Time: 12/29/24 12:06 History and Physical has been reviewed, including an updated exam of the patient. There are NO changes in the patient's condition. Risks, benefits, and alternatives have been discussed and questions answered. Patient agrees to proceed with procedure.
[2024-12-29] MEDS: CLINDAMYCIN 900 MG/D5W 50 ML 900 MG/50 ML PIGGYBACK 50 MG IVPB (12:11)
[2024-12-29] MEDS: BUPIVACAINE/EPINEPHRINE 0.5% 30 ML VIAL INFILTRATE (12:31)
--- NOTE | 2024-12-29 13:34 | P.OP_ITS ---
Procedure Note - Detailed Date of Procedure 12/29/24 Pre-op Diagnosis right inguinal hernia Post-op Diagnosis Same Procedure Performed robotic assisted right inguinal hernia repair with mesh Surgeon Emilia Maharaj MD Anesthesia General and Local Indications 74-year-old female with progressively worsening right inguinal hernia over the last few months Findings indirect right inguinal hernia Description of Procedure Patient was brought into the operating room and placed in the supine position. After adequate induction of general anesthesia, the patient was prepped and draped in normal sterile fashion. A time-out was then done to verify the patient's identity, as well as the procedure being performed. Began by making a 8 mm incision in the supraumbilical region, a Veress needle was then placed into the peritoneal cavity. CO2 gas was then insufflated and after adequate pneumoperitoneum was achieved, the Veress needle was removed. I then placed an 8 mm trocar through this incision. I then placed the endoscope through this trocar site and under direct visualization placed 2 further 8 mm ports in the right and left mid abdomen. The [employer] robot was then docked to the 3 trocar sites. I then scrubbed out and went to the robotic console. Upon examining the pelvis, it was noted that the patient had a large right inguinal hernia. The left side was examined and no hernia defect was noted. I began by making a preperitoneal flap approximately 6 cm superior to the defect. This flap was carried medially past the umbilical ligaments in laterally to the transversalis. It then began dissection of my medial compartment taking this down to the pubic tubercle. I then began the lateral dissection taking this down to the transversalis fascia. Once these compartments were achieved, I began dissection around the round ligament . A large indirect hernia was noted at this point. Using careful dissection, was able to reduce indirect hernia sac off the round ligament. Once completely dissected, I did go ahead and transect the round ligament. Once this was adequately done, I went ahead and placed a large piece of 3D Max mesh into the abdominal cavity. The mesh was carefully positioned, centering the center of the mesh over the indirect defect. Once this was done, was very satisfied with our repair. Using 3-0 Vicryl sutures, I tacked the mesh medially to Lucas's ligament. Two lateral sutures were placed from the mesh to the transversalis fascia. I then closed the peritoneal flap with a running 2.0 V Lock suture. The abdomen was then desufflated, and all ports were removed. All incisions were then closed with the 4.0 monocryl suture. Dermabond was placed on each wound. The patient tolerated the procedure well, was extubated in the operating room postoperatively, and will now be transferred to the recovery room in stable condition. Implants large 3DMax mesh Estimated Blood Loss 10 Drains No Packing No Pathology None sent Complications No immediate complications Condition Stable Disposition PACU [facility] Billing Surgery - Charge Forward: Surgery Billing
== END 2024-12-29 15:30 | disposition home or self-care (01) ==
PROVIDERS: PCP Family Medicine; Visit Provider Surgery
PROC: 8E0Y4CZ Robotic Assisted Procedure of Lower Extremity, Percutaneous Endoscopic Approach (ICD-10-PCS; CPT 49650; principal; 2024-12-29 12:00)
DX: K40.90 Unilateral inguinal hernia, without obstruction or gangrene, not specified as recurrent (principal); E11.9 Type 2 diabetes mellitus without complications; Z87.891 Personal history of nicotine dependence; E66.9 Obesity, unspecified; Z68.33 Body mass index [BMI] 33.0-33.9, adult
CPT/HCPCS: 49650; S2900; 82948; A9270; C1781; J1100; J1885; J2003; J2405; J2704; J3010; J7120

== ENCOUNTER 2025-04-11 09:55 | Outpatient (CLI) | payer MEDICARE, SELFPAY ==
[2025-04-11 13:04] LABS: Hematocrit 53.0 % (37.0-47.0); Hemoglobin 16.7 g/dL (12.0-15.0); Mean Corpuscular HGB Conc 31.5 g/dl (32-36); Mean Corpuscular Hemoglobin 27.5 pg (26-34); Mean Corpuscular Volume 87.2 fl (80-100); Platelet Count Result 220 k/mm3 (150-375); Red Blood Count 6.08 M/mm3 (4.2-5.4); White Blood Count 7.1 K/mm3 (4.5-10.0)
[2025-04-11 13:17] LABS: Alanine Aminotransferase 20 U/L (6-35); Albumin Level 4.3 g/dL (3.5-5.1); Alkaline Phosphatase 84 U/L (38-126); Anion Gap 10 mmol/L (4-12); Aspartate Amino Transferase 37 U/L (14-36); Bilirubin,Total 1.0 mg/dL (0.2-1.3); Blood Urea Nitrogen 19 mg/dL (7-17); Calcium 9.6 mg/dL (8.4-10.2); Carbon Dioxide 24 mmol/L (22-30); Chloride 103 mmol/L (98-107); Cholesterol 173 mg/dL (0-200); Estimated Glomerular Filt Rate 49; Glucose 134 mg/dL (65-110); HDL Direct 56 mg/dL; Potassium 4.5 mmol/L (3.4-5.0); Sodium 137 mmol/L (137-145); Total Protein 7.7 g/dL (6.3-8.2); Triglycerides 117 mg/dL (<150)
[2025-04-11 16:44] LABS: MALB Creatinine Ratio 12.9 mg/g (0-30)
== END 2025-04-11 09:56 | disposition home or self-care (01) ==
LOC: ANHGOSHLAB 09:57
PROVIDERS: PCP Family Medicine; Visit Provider Family Medicine
DX: E11.22 Type 2 diabetes mellitus with diabetic chronic kidney disease (principal); N18.31 Chronic kidney disease, stage 3a; E78.2 Mixed hyperlipidemia; Z13.220 Encounter for screening for lipoid disorders
CPT/HCPCS: 36415; 80048; 80061; 80076; 82043; 85027